=== PATIENT | female | born 1965 | race Caucasian/White ===

== ENCOUNTER 2019-11-08 13:48 | Outpatient (CLI) | payer BC, SELFPAY ==
--- NOTE | ~2019-11-08 | MM_ITS ---
EXAMINATION: MM screening eric BI w meche HISTORY: Screening mammogram TECHNIQUE: Craniocaudal and mediolateral oblique 3-D tomosynthesis images were obtained and synthetic 2-D images were generated. CAD analysis was submitted and interpreted. COMPARISON: No prior mammogram is available for comparison at this institution. BREAST PARENCHYMAL COMPOSITION: The breasts are heterogeneously dense, which may obscure small masses . FINDINGS: There is no evidence of suspicious mass, calcification, or architectural distortion to sugg est malignancy in either breast. There has been no suspicious interval change. IMPRESSION: 1. No mammographic evidence of malignancy. 2. Recommend routine screening mammography in one year. BI-RADS Category 1: Negative Reviewed, dictated and finalized at location A.
== END 2019-11-08 13:49 | disposition home or self-care (01) ==
LOC: ANHIMG 13:55
PROVIDERS: PCP Obstetrics & Gynecology; Visit Provider Obstetrics & Gynecology
DX: Z12.31 Encounter for screening mammogram for malignant neoplasm of breast (principal)
CPT/HCPCS: 77063; 77067

== ENCOUNTER 2020-02-28 08:49 | Outpatient (CLI) | payer BC, SELFPAY | END 2020-02-28 08:50 | disposition home or self-care (01) | PROVIDERS: PCP Family Medicine; Visit Provider Physician Assistant | DX: U07.1 COVID-19 (principal) | CPT/HCPCS: 36415; 86769 ==

== ENCOUNTER 2020-03-01 09:19 | Outpatient (CLI) | payer BC, SELFPAY ==
--- NOTE | ~2020-03-01 | US_ITS ---
EXAMINATION: US thyroid EXAM DATE: 03/01/2020 10:01 INDICATION: E04.9 - Nontoxic goiter. TECHNIQUE: Multiple grayscale and Doppler images of the thyroid were obtained (by a technologist who performed the scan) and subsequently reviewed. Individual nodules and recommendations may be reporte d in accordance with TI-RADS system as designated by the 2017 ACR White Paper TI-RADS committee. The re is no prior study for comparison. FINDINGS: The right thyroid lobe measures 4.2 x 1.3 x 1.4 cm, the left measuring 5.6 x 2.4 x 2.3 cm. Relatively homogeneous thyroid echogenicity. There are several right thyroid nodules measuring up to 4 mm, not likely clinically significant. However, in the left thyroid lobe there is a hypervascular nodule measuring 3.6 x 2.3 x 2.0 cm, solid (2 points), hypoechoic (2 points), wider than tall, smooth margin with surrounding hypoechoic halo, without echogenic foci, category TR4 for this nodule. Just inferior to this nodule there is a smaller category TR 4 nodule measuring 0.9 x 1.0 x 1.2 cm. IMPRESSION: Bilateral thyroid nodules, dominant nodule in the left, large enough to recommend ultraso und-guided biopsy. Reviewed, dictated and finalized at location A. GNA IMPRESSION: Bilateral thyroid nodules, dominant nodule in the left, large enoug h to recommend ultrasound-guided biopsy.
== END 2020-03-01 09:20 | disposition home or self-care (01) ==
PROVIDERS: PCP Family Medicine; Visit Provider Family Medicine
DX: E04.9 Nontoxic goiter, unspecified (principal)
CPT/HCPCS: 76536

== ENCOUNTER 2020-11-11 14:29 | Outpatient (CLI) | payer BC, SELFPAY ==
--- NOTE | ~2020-11-11 | MM_ITS ---
EXAMINATION: MM screening eric BI w mcehe HISTORY: Screening TECHNIQUE: Craniocaudal and mediolateral oblique 3-D tomosynthesis images were obtained and synthetic 2-D images were generated. CAD analysis was submitted and interpreted. COMPARISON: Comparison to multiple prior studies sequentially, with oldest reviewed study dated 11/2013. BREAST PARENCHYMAL COMPOSITION: The breasts are heterogenously dense, which may obscure small masses. FINDINGS: The right breast is stable without evidence for malignancy. There is a focal subareolar asy mmetry on MLO view, not appreciated on prior studies. IMPRESSION: 1. Focal left breast asymmetry, subareolar location. 2. Additional spot compression and mediolateral views with possible follow-up breast ultrasound recom mended. BI-RADS Category 0: Incomplete: Needs additional imaging evaluation. Reviewed, dictated and finalized at location A. IMPRESSION: 1. Focal left breast asymmetry, subareolar location. 2. Additional spot compression and mediolateral views with possible follow-up b reast ultrasound recommended. BI-RADS Category 0: Incomplete: Needs additional imaging evaluation.
== END 2020-11-11 14:30 | disposition home or self-care (01) ==
LOC: ANHIMG 14:31
PROVIDERS: PCP Family Medicine; Visit Provider Obstetrics & Gynecology
DX: Z12.31 Encounter for screening mammogram for malignant neoplasm of breast (principal); R92.8 Other abnormal and inconclusive findings on diagnostic imaging of breast
CPT/HCPCS: 77063; 77067

== ENCOUNTER 2021-02-28 11:28 | Outpatient (CLI) | payer BC, SELFPAY ==
--- NOTE | ~2021-02-28 | MMUS_ITS ---
EXAMINATION: MM diagnostic eric LT w meche, US breast LT limited HISTORY: Focal asymmetry in the subareolar aspect breast TECHNIQUE: Additional 3-D tomosynthesis images of the left breast were performed and synthetic 2-D im ages were generated. CAD analysis was submitted and interpreted. High resolution limited left breast ultrasound was performed. COMPARISON: 11/11/2020, 11/08/2019, 10/21/2017 BREAST PARENCHYMAL COMPOSITION: There are scattered areas of fibroglandular density. FINDINGS: MAMMOGRAPHIC FINDINGS: There is a return to baseline fibroglandular appearance with spot compression of the subareolar left breast in the area questioned on screening mammogram. ULTRASOUND: There is no evidence of focal abnormal solid or cystic mass in the vicinity of the mammographic findi ng in question. IMPRESSION: 1. No mammographic or sonographic evidence of malignancy. 2. Recommend routine screening mammography in one year. BI-RADS Category 2: Benign finding(s). Reviewed, dictated and finalized at location A. LER IMPRESSION: 1. No mammographic or sonographic evidence of malignancy. 2. Recommend routine screening mammography in one year. BI-RADS Category 2: Benign finding(s).
== END 2021-02-28 11:29 | disposition home or self-care (01) ==
LOC: ANHIMG 11:32
PROVIDERS: PCP Family Medicine; Visit Provider Obstetrics & Gynecology
DX: R92.8 Other abnormal and inconclusive findings on diagnostic imaging of breast (principal)
CPT/HCPCS: 76642; 77061; 77065; G0279

== ENCOUNTER 2022-09-18 08:01 | Outpatient (CLI) | payer BC, SELFPAY ==
--- NOTE | ~2022-09-18 | MM_ITS ---
EXAMINATION: MM screening eric BI w meche HISTORY: Screening TECHNIQUE: Craniocaudal and mediolateral oblique 3-D tomosynthesis images were obtained and synthetic 2-D images were generated. CAD analysis was submitted and interpreted. COMPARISON: Comparison to multiple prior studies sequentially, with oldest reviewed study dated 10/03. BREAST PARENCHYMAL COMPOSITION: The breasts are heterogeneously dense, which may obscure small masses . FINDINGS: There are developing calcifications posteriorly in the left breast evolving the upper outer quadrant and the lower aspect of the left breast on MLO view. The right breast is stable without erika dence for malignancy. IMPRESSION: 1. Developing left breast calcifications. 2. Magnification views are recommended. BI-RADS Category 0: Incomplete: Needs additional imaging evaluation. Reviewed, dictated and finalized at location A.
== END 2022-09-18 08:02 | disposition home or self-care (01) ==
LOC: ANHIMG 08:04
PROVIDERS: PCP Student in an Organized Health Care Education/Training Program; Visit Provider Obstetrics & Gynecology
DX: Z12.31 Encounter for screening mammogram for malignant neoplasm of breast (principal); R92.8 Other abnormal and inconclusive findings on diagnostic imaging of breast
CPT/HCPCS: 77063; 77067

== ENCOUNTER 2023-01-29 11:10 | Outpatient (CLI) | payer BC, SELFPAY ==
--- NOTE | ~2023-01-29 | MM_ITS ---
EXAMINATION: MM diagnostic mammo unilat LT HISTORY: Follow-up left breast calcifications TECHNIQUE: Additional 3-D tomosynthesis images of the left breast were performed and synthetic 2-D im ages were generated. CAD analysis was submitted and interpreted. COMPARISON: Comparison to multiple prior studies sequentially, with oldest reviewed study dated 12/2016. BREAST PARENCHYMAL COMPOSITION: The breasts are heterogeneously dense, which may obscure small masses FINDINGS: There are no suspicious masses, clustered calcifications or architectural distortion in the left breast to suggest malignancy. Calcifications seen on most recent examination dated 09/18/2022 a re not visualized, possibly artifact. IMPRESSION: 1. No mammographic evidence for malignancy in the left breast. 2. Routine yearly screening mammogram and regular clinical breast examination are recommended. BI-RADS Category 1: Negative Reviewed, dictated and finalized at location A. IMPRESSION: 1. No mammographic evidence for malignancy in the left breast. 2. Routine yearly screening mammogram and regular clinical breast examination a re recommended. BI-RADS Category 1: Negative
== END 2023-01-29 11:11 | disposition home or self-care (01) ==
PROVIDERS: PCP Student in an Organized Health Care Education/Training Program; Visit Provider Obstetrics & Gynecology
DX: R92.8 Other abnormal and inconclusive findings on diagnostic imaging of breast (principal)
CPT/HCPCS: 77065

== ENCOUNTER 2024-05-29 09:58 | Outpatient (CLI) | payer BC, SELFPAY ==
--- NOTE | ~2024-05-29 | MM_ITS ---
EXAMINATION: MM screening eric BI w meche HISTORY: Screening TECHNIQUE: Craniocaudal and mediolateral oblique 3-D tomosynthesis images were obtained and synthetic 2-D images were generated. CAD analysis was submitted and interpreted. COMPARISON: Comparison to multiple prior studies sequentially, with oldest reviewed study dated 10/21. BREAST PARENCHYMAL COMPOSITION: Dense: The breasts are heterogeneously dense, which may obscure small masses FINDINGS: There is no evidence of suspicious mass, calcification, or architectural distortion to sugg est malignancy in either breast. There has been no suspicious interval change. IMPRESSION: 1. No mammographic evidence of malignancy. 2. Recommend routine screening mammography in one year. BI-RADS Category 1: Negative Reviewed, dictated and finalized at location B. ITE INSTALLER
--- OUTSIDE RECORDS SUMMARY | 2024-05-29 12:48 | XMS_ITS | Clinical Summary ---
Author Organization [facility] [address] [facility] Address [address] [place] [address] Care Team Providers Care Articulation Officer Name Role Phone Unavailable Primary Care Provider Unavailabl e Allergies No known active allergies Medications multivit-min/iro n/folic acid/K (ADULTS MULTIVITAMIN ORAL) Rx: Multivitamin Adult Active zinc sulfate (ZINC-220 ORAL) Rx: Zinc Acti ve ascorbic acid (vitamin C) 250 mg tablet Rx: Vitamin C Active [id number]-NY-wbt-epa- [id number]-mv 1.5 mg iron- 8.73 mg capsule,IR & delay rel,biphase Rx: Iron Active Active Problems Problem Noted Date Diagnosed Date BMI less than 19,adult 10/04/2018 Assessment & Plan (10/04/2018 8:43 AM CDT): Weight/BMI is in healthy range. Continue healthy lifestyle to maintain. Annual physical exam 10/04/2018 Assessment & Plan (10/04/2018 8:43 AM CDT): Encouraged healthy lifestyle, good nutrition and exercise. Encouraged Calcium and Vitamin D and weight bearing exercise for bone health. Reviewed immunizations Reviewed age appropirate screenings. Surgical History Surgery Date Site/Laterality Comments PARTIAL HYSTERECTOMY 03/12/2016 - 04/11/2016 Family History Medical History Relation Name Comments Alzheimer's disease Maternal Grandmother Migraines Mother Relation Name Status Comments Maternal Grandmother Mother Social History Tobacco Use Types Packs/Day Years Used Date Smoking Tobacco: Never Alcohol Use Standard Drinks/Week Comments Yes 0 (1 standard drink = 0.6 oz pur e alcohol) AUDIT-C Answer Date Recorded Frequency of Alcohol Consumption 2-4 times a mon th 10/04/2018 Average Number of Drinks 1 or 2 019 Frequency of Binge Drinking Not on file 09/11 PHQ-2 Answer Date Recorded PHQ-2 Score 0 12/03/2018 Personal Safety Answer Date Recorded Getting School Help Needed Not on file 06/26 Comments Unknown Sex and Gender Information Value Date Recorded Sex Assigned at Not on file Legal Sex Female 12:47 AM CHECK AND TRANSFER BEADER Gender Identity Not on file Sexual Orientation Not on file 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
--- OUTSIDE RECORDS SUMMARY | 2024-05-29 12:48 | XMS_ITS | Referral Summary ---
Author Organization [facility] Address [address] [place] [address] Care Team Providers Care Conductor Road Freight Name Role Phone Unknown, Provider Primary Care Provider Unavaila ble Source Comments [facility],non-owned Affiliates and Associated Physician Practices is amultiple site organization consisting of ambulatory clinics and hospital sitesin [place], [place], [place] and [place]. This disclosure is being madepursuant to the Care Everywhere program and may not contain all information available regarding this patient. Last updated 17.[facility] Allergies No known active allergies Medications * Be aware that medications may not be up to date on this document. Alwaysverify current medications with the patient. Medication Sig Dispensed Refills Start Date End Date Status azithromycin (ZITHROMAX) 250 MG tabletIndications:Acute sinusitis, recurrence not specified, unspecified location,Acute otitis media, unspecified otitis media type Take 2 tabs today, then 1 tab daily for next 4 days 6 tablet 03/04/2021 Active Active Problems No known active problems Social History Tobacco Use Types Packs/Day Years Used Date Smoking Tobacco: Never Smokeless Tobacco: Never Sex and Gender Information Value Date Recorded Sex Assigned at Not on file Gender Identity Not on file Sexual Orientation Not on file Last Filed Vital Signs Vital Sign Reading Time Taken Comments Blood Pressure 100/58 03/04/2021 7:06 PM HAULAGE ENGINE OPERATOR Pulse 72 03/04/2021 7:06 PM HAULAGE ENGINE OPERATOR Temperature 36.7 C (98.1 F) 03/04/2021 7:06 PM HAULAGE ENGINE OPERATOR Respiratory Rate 18 03/04/2021 7:06 PM HAULAGE ENGINE OPERATOR Oxygen Saturation 98% 03/04/2021 7:06 PM HAULAGE ENGINE OPERATOR Inhaled Oxygen Concentration - - Weight 51.3 kg (113 lb) 03/04/2021 7:06 PM HAULAGE ENGINE OPERATOR Height 157.5 cm (5' 2 ) 03/04/2021 7:06 PM HAULAGE ENGINE OPERATOR Body Mass Index 20.67 03/04/2021 7:06 PM HAULAGE ENGINE OPERATOR Plan of Treatment Not on file Care Teams Conductor Road Freight Relationship Specialty Start Date End Date Unknown, Provider PCP - General 03/04/21
--- OUTSIDE RECORDS SUMMARY | 2024-05-29 12:48 | XMS_ITS | Clinical Summary ---
Author Organization [facility] Address [address] [place] [id number] Care Team Providers Care Piping Blocker Name Role Phone Scott Resendiz DO Primary Care Provider + Allergies No known active allergies Medications Multiple Vitamin (MULTIVITAMIN ADULT OR) Rx: Multivitamin Adult Active zinc sulfate 220 (50 Zn) MG tablet Rx: Zinc Active Ascorbic Acid 250 MG Tab Rx: Vitamin C Activ e Dietary Management Product (ENLYTE) Cap Rx: Iron Active magnesium oxide (MAG-OX) 250 MG tablet Take 1 tablet by mouth daily. Active calcium carb-cholecalci ferol (CALTRATE+D) 600-10 MG-MCG Tab tablet 1 tablet daily. Act codie Active Problems No known active problems Immunizations Name Administration Dates Next Due MODERNA COVID-19 (VENEER STOCK GRADER ROSE MARIAN), MRNA, LNP-S, PF, 50 MCG/ 0.25 ML DOSE 04/26/2021 Tdap (Generic) 06/11/2022 Family History Medical History Relation Comments Cancer Maternal Grandfather lung Relation Status Comments Maternal Grandfather Social History Tobacco Use Types Packs/Day Years Used Date Smoking Tobacco: Never Passive Smoke Exposure: Never Smokeless Tobacco: Never Tobacco Cessation:Counseling Given: Yes Alcohol Use Standard Drinks/Week Comments Yes 1.7 (1 standard drink = 0.6 oz p ure alcohol) once a week. PHQ-2 Answer Date Recorded Patient Health Questionnaire-2 Score 0 06/16/2022 Comments No Sex and Gender Information Value Date Recorded Sex Assigned at Not on file Legal Sex Female 11:07 AM AUTOCAD DESIGNER Gender Identity Not on file Sexual Orientation Not on file Occupation Industry Job Start Date Job End Date Not on file Not on file Not on file Not on file Last Filed Vital Signs Vital Sign Reading Time Taken Comments Blood Pressure 114/62 06/16/2022 1:18 PM AUTOCAD DESIGNER Pulse 68 06/16/2022 1:18 PM AUTOCAD DESIGNER Temperature 36.8 C (98.3 F) 06/16/2022 1:18 PM AUTOCAD DESIGNER Respiratory Rate 16 06/16/2022 1:18 PM AUTOCAD DESIGNER Oxygen Saturation 98% 06/16/2022 1:18 PM AUTOCAD DESIGNER Inhaled Oxygen Concentration - - Weight 49.8 kg (109 lb 12.8 oz) 06/16/2022 1:18 PM AUTOCAD DESIGNER Height 158.1 cm (5' 2.25 ) 06/16/2022 1:18 PM CS T Body Mass Index 19.92 06/16/2022 1:18 PM AUTOCAD DESIGNER Plan of Treatment Health Maintenance Due Date Last Done Comments Cervical Cancer Screening Pa p Smear (Age 30 to 64) Every 3 Years 1965 Colorectal Cancer Screening Colonoscopy (10 Years) 1965 Hepatitis B Vaccines (1 of 3 - 19+ 3-dose series) 1984 Cervical Cancer Screening Pa p with HPV Testing (Age 30 to 64) Every 5 Years 09/27/1995 Cervical Cancer Screening wi th HPV 09/27/1995 Zoster Vaccines (1 of 2) 09/27/2015 Annual Physical 06/17/2023 06/16/2022 PHQ-2 (Physician [place]) 06/17/2023 06/16/2022 COVID-19 Vaccine (4 - 2023-2 5 season) 2023 04/26/2021, 07/23/2020, 06/25/2020 Influenza Adult (#1) 2024 PHQ-2 (Physician [place]) 04/12/2024 06/16/2022 Mammogram Screening 01/29/2025 01/29/2023, 09/18/2022 DTaP, Tdap and Td Vaccines ( 2 - Td or Tdap) 06/11/2032 06/11/2022 Hepatitis C Completed 06/16/2022 Meningococcal B Vaccine Aged Out No l onger eligible based on patient's age to complete this topic Meningococcal Vaccine Aged Out No andrez ayanna eligible based on patient's age to complete this topic Pneumococcal Vaccine: Pediatrics (0 to 5 Years) and At-Risk Patients (6 to 64 Years) Aged Out No longer eligible b ased on patient's age to complete this topic RSV Immunizations Under 20 Months Aged Out No longer eligible b ased on patient's age to complete this topic Procedures Procedure Name Priority Date/Time Associated Diagnosis Comments MAMMOGRAM GENERIC (SCAN ORDER) 01/29/2023 HEPATITIS C ANTIBODY Routine 06/16/2022 4:21 PM AUTOCAD DESIGNER Encounter for preventative adult health care examination Screening for lipid disorders Screening for endocrine, metabolic and immunity disorder Need for hepatitis C screening test from Last 3 Months or Most Recently Relevant to Health Maintenance Results * MAMMOGRAM GENERIC (01/29/2023) Anatomical Region Laterality Modality Other 01/29/2023 us [facility] Scanned SCANNING Final Resu lt * HEPATITIS C ANTIBODY (06/16/2022 4:21 PM AUTOCAD DESIGNER) HEPATITIS C AB NON-REACTI VE NON-REACT CODIE 06/16/2022 9:[address] [facility] Comment: ANTIBODIES TO HCV NOT DETECTED. DOES NOT EXCLUDE THE POSSIBILITY OF EXPOSURE TO HCV. 06/16/2022 4:21 PM AUTOCAD DESIGNER Scott Resendiz DO LABORATORY Final Re sult [facility] [address] [place] [address], [id number] from Last 3 Months or Most Recently Relevant to Health Maintenance Insurance [facility] Care Teams Piping Blocker Relationship Specialty Start Date End Date Scott Resendiz DO [address] [place] [id number] PCP - General FAMILY PRACTICE 06/16/22
--- OUTSIDE RECORDS SUMMARY | 2024-05-29 12:48 | XMS_ITS | Clinical Summary ---
Author Organization [facility] Address [address] [place] [address] Care Team Providers Care Horse Racing Analyst Name Role Phone Unknown, Provider Primary Care Provider Unavaila ble Source Comments [facility],non-owned Affiliates and Associated Physician Practices is amultiple site organization consisting of ambulatory clinics and hospital sitesin [place], [place], [place] and [place]. This disclosure is being madepursuant to the Care Everywhere program and may not contain all information available regarding this patient. Last updated 17.[facility] Allergies No known active allergies Medications * [...] Comments Blood Pressure 100/58 03/04/2021 7:06 PM FEDERAL MEDIATOR Pulse 72 03/04/2021 7:06 PM FEDERAL MEDIATOR Temperature 36.7 C (98.1 F) 03/04/2021 7:06 PM FEDERAL MEDIATOR Respiratory Rate 18 03/04/2021 7:06 PM FEDERAL MEDIATOR Oxygen Saturation 98% 03/04/2021 7:06 PM FEDERAL MEDIATOR Inhaled Oxygen Concentration - - Weight 51.3 kg (113 lb) 03/04/2021 7:06 PM FEDERAL MEDIATOR Height 157.5 cm (5' 2 ) 03/04/2021 7:06 PM FEDERAL MEDIATOR Body Mass Index 20.67 03/04/2021 7:06 PM FEDERAL MEDIATOR Plan of Treatment Health Maintenance Due Date Last Done Comments COLOGUARD (AGES 45-75) - COL ON CA SCREENING 1965 COLON MONITORING 1965 COLONOSCOPY - COLON CA SCREENING 1965 CT COLONOGRAPHY - COLON CA SCREENING 1965 Colorectal Cancer Screening 1965 FIT - COLON CA SCREENING 1965 FLEX SIG - COLON CA SCREENING 1965 LIPID TESTING 1965 MAMMOGRAM 1965 PAP SMEAR 1965 HIV SCREENING 1980 HEPATITIS C SCREENING 09/22/1983 DTAP/TDAP/TD VACCINES (1 - Tdap) 1984 HEPATITIS B VACCINE (1 of 3 - 19+ 3-dose series) 1984 PNEUMOCOCCAL VACCINE 50+ (1 of 1 - PCV) 09/27/2015 ZOSTER VACCINE (1 of 2) 09/27/2015 COVID-19 VACCINE ( - 2023-2 5 season) 2023 INFLUENZA VACCINE (#1) 2023 DEPRESSION SCREENING 04/12/2024 HIB VACCINE Aged Out No longer eligi ble based on patient's age to complete this topic HPV VACCINE Aged Out No longer eligi ble based on patient's age to complete this topic MENINGOCOCCAL (Group B) VACCINE Aged Out No longer eligible based on patient's age to complete this topic MENINGOCOCCAL VACCINE Aged Out No andrez ayanna eligible based on patient's age to complete this topic PNEUMOCOCCAL VACCINE Aged Out No long er eligible based on patient's age to complete this topic Care Teams Horse Racing Analyst Relationship Specialty Start Date End Date Unknown, Provider PCP - General 03/04/21
--- OUTSIDE RECORDS SUMMARY | 2024-05-29 12:48 | XMS_ITS | Referral Summary ---
Author Organization [facility] [address] [facility] Address [address] [place] [address] Care Team Providers Care Vinyl Flooring Installer Name Role Phone Unavailable Primary Care Provider Unavailabl e Allergies No known active allergies Medications multivit-min/iro n/folic acid/K (ADULTS MULTIVITAMIN ORAL) Rx: Multivitamin Adult Active zinc sulfate (ZINC-220 ORAL) Rx: Zinc Acti ve ascorbic acid (vitamin C) 250 mg tablet Rx: Vitamin C Active wudj-DM-yzn-epa- CIP-PPNF-[id number]-mv 1.5 mg iron- 8.73 mg capsule,IR & [...] health. Reviewed immunizations Reviewed age appropirate screenings. Social History Tobacco Use Types Packs/Day Years [...] on file Legal Sex Female 12:47 AM JD EDWARDS Gender Identity Not on file Sexual Orientation Not on file Occupation Industry Job Start Date Job End Date [employer] Not on file Not on file Not [...] Plan of Treatment Not on file Insurance [facility]
--- OUTSIDE RECORDS SUMMARY | 2024-05-29 12:48 | XMS_ITS | Patient Health Summary ---
Author Organization [facility] Address [address] [place] [address] Care Team Providers Care Linotype Worker Name Role Phone Unknown, Provider Primary Care Provider Unavaila ble Note from [facility],non-owned Affiliates and Associated Physician Practices is amultiple site organization consisting of ambulatory clinics and hospital sitesin [place], [place], [place] and [place]. This disclosure is being madepursuant to the Care Everywhere program and may not contain all information available regarding this patient. Last updated 17.[facility] Allergies No known active allergies Medications * Be aware that medications may not be up to date on this document. Alwaysverify current medications with the patient. * azithromycin (ZITHROMAX) 250 MG tablet(Started 03/04/2021) Take 2 tabs today, then 1 tab daily for next 4 days Active Problems No known active problems Social History Tobacco Use Types Packs/Day Years Used Date Smoking Tobacco: Never Smokeless Tobacco: Never Sex and Gender Information Value Date Recorded Sex Assigned at Not on file Gender Identity Not on file Sexual Orientation Not on file Last Filed Vital Signs Vital Sign Reading Time Taken Comments Blood Pressure 100/58 03/04/2021 7:[address] MAGISTRATE Pulse 72 03/04/2021 7:[address] MAGISTRATE Temperature 36.7 C (98.1 F) 03/04/2021 7:[address] MAGISTRATE Respiratory Rate 18 03/04/2021 7:[address] MAGISTRATE Oxygen Saturation 98% 03/04/2021 7:[address] MAGISTRATE Inhaled Oxygen Concentration - - Weight 51.3 kg (113 lb) 03/04/2021 7:[address] MAGISTRATE Height 157.5 cm (5' 2 ) 03/04/2021 7:[address] MAGISTRATE Body Mass Index 20.67 03/04/2021 7:[address] MAGISTRATE Care Teams Linotype Worker Relationship Specialty Start Date End Date Unknown, Provider PCP - General 03/04/21
== END 2024-05-29 09:59 | disposition home or self-care (01) ==
LOC: ANHIMG 10:00
PROVIDERS: PCP Student in an Organized Health Care Education/Training Program; Visit Provider Obstetrics & Gynecology
DX: Z12.31 Encounter for screening mammogram for malignant neoplasm of breast (principal)
CPT/HCPCS: 77063; 77067

== ENCOUNTER 2025-02-20 10:46 | Outpatient (CLI) | payer BC, SELFPAY ==
--- NOTE | ~2025-02-20 | MMUS_ITS ---
EXAMINATION: US breast LT limited, MM diagnostic eric LT w meche HISTORY: Palpable left breast abnormality. TECHNIQUE: Additional 3-D tomosynthesis images of the left breast were performed and synthetic 2-D images were generated. CAD analysis was submitted and interpreted. High resolution Limited left breast ultrasound was performed. COMPARISON: Comparison to multiple prior studies sequentially, with oldest reviewed study dated 11/08/2019. BREAST PARENCHYMAL COMPOSITION: Dense: The breasts are heterogeneously dense, which may obscure small masses FINDINGS: MAMMOGRAPHIC FINDINGS: There are no suspicious masses, calcifications or architectural distortion in the left breast. No significant interval change. There is a probable benign fat containing lipoma in the area of palpable concern. ULTRASOUND: Limited left breast ultrasound: Normal heterogeneous echotexture without focal solid or cystic mass. IMPRESSION: 1. No evidence for malignancy in the left breast. 2. Routine yearly screening mammogram and regular clinical breast examination are recommended. BI-RADS Category 1: Negative Reviewed, dictated and finalized at location B. CAPTAIN IMPRESSION: 1. No evidence for malignancy in the left breast. 2. Routine yearly screening mammogram and regular clinical breast examination a re recommended. BI-RADS Category 1: Negative
== END 2025-02-20 10:47 | disposition home or self-care (01) ==
LOC: ANHFOHIMG 10:46
PROVIDERS: PCP Student in an Organized Health Care Education/Training Program; Visit Provider Obstetrics & Gynecology
DX: N63.20 Unspecified lump in the left breast, unspecified quadrant (principal)
CPT/HCPCS: 76642; 77061; 77065; G0279